=== PATIENT | female | born 1990 | race Caucasian/White ===

== ENCOUNTER 2018-09-06 18:29 | Emergency (ER) | payer OTHER ==
--- NOTE | 2018-09-06 18:49 | EDPHY ---
H & P Stated Complaint: today had acute vaginal bleeding with clots at 3pm 12 wks - Personal History LMP (Females 10-55): Current Tetanus Diphtheria and Acellular Pertussis (TDAP): Yes - Medical/Surgical History Hx Asthma: No Hx Chronic Respiratory Disease: No Hx Diabetes: No Hx Cardiac Disease: No Hx Renal Disease: No Hx Cirrhosis: No Hx Alcoholism: No Hx HIV/AIDS: No Hx Splenectomy or Spleen Trauma: No Other PMH: denies - Social History Smoking Status: Never smoked Time Seen by Provider: 09/06/18 18:40 HPI/ROS: CHIEF COMPLAINT: Vaginal bleeding, HISTORY OF PRESENT ILLNESS: 27-year-old female SAB 1, currently 12 weeks 1 day, complaining of vaginal spotting and passage of clots few hours ago while she was in a meeting. She is visiting from [place]. She has had ultrasonographic confirmation of her intrauterine . Denies: Abdominal pain, abdominal cramping, back or flank pain, urinary abnormality, trauma PRIMARY CARE PROVIDER: In [place] REVIEW OF SYSTEMS: 10 systems reviewed and negative with the exception of the elements mentioned in the history of present illness PAST MEDICAL & SURGICAL HISTORY: SAB 1, last spontaneous at 7 weeks SOCIAL HISTORY: Visiting from [place]. PHYSICAL EXAM (Prior to examination, patient consented to physical exam, hands were washed and my usual and customary physical exam procedures followed) 1) GENERAL: Well-developed, well-nourished, alert and oriented. Appears to be in no acute distress. 2) HEAD: Normocephalic, atraumatic 3) HEENT: Pupils equal, round, reactive to light bilaterally. Sclera anicteric. 4) NECK: Full range of motion, no meningeal signs. 5) LUNGS: Clear auscultation bilaterally, no wheezes, no rhonchi, no retractions. 6) HEART: Regular rate and rhythm, no murmur, no heave, no gallop. 7) ABDOMEN: No guarding, no rebound, no focal tenderness, negative McBurney's, negative Bonds's, negative Rovsing's, negative peritoneal sign, 8) MUSCULOSKELETAL: Moving all extremities, no focal areas of tenderness, no obvious trauma. No peripheral edema or discoloration. 9) BACK: No CVA tenderness, no midline vertebral tenderness, no fluctuance, no step-off, no obvious trauma, no visual or palpable abnormality. 10) SKIN: No rash, no petechiae. 11) Psychiatric: Patient is oriented X 3, there is no agitation. DIFFERENTIAL DIAGNOSIS: In no particular order including but not limited to spontaneous , threatened , complete , ectopic ([place]) Constitutional: Initial Vital Signs Temperature (C) 37.3 C 09/06/18 18:32 Heart Rate 98 09/06/18 18:32 Respiratory Rate 18 09/06/18 18:32 Blood Pressure 121/66 H 09/06/18 18:32 O2 Sat (%) 99 09/06/18 18:32 O2 Delivery Mode Room Air Allergies/Adverse Reactions: sulfamethoxazole [From Decra] Allergy (Verified 09/06/18 18:32) trimethoprim [From Decra] Allergy (Verified 09/06/18 18:32) Home Medications: Medication Instructions Recorded 09/06/18 Synthroid 09/06/18 Medical Decision Making - Diagnostics Imaging Results: Imaging Impressions Obstetrics Ultrasound 09/06/18 18:48 Impression: 1. Single live intrauterine gestation with estimated age by ultrasound of 12 weeks 4 days with an estimated delivery date of March 17, 2019. 2. Low-lying placenta; follow-up would be suggested at approximately 20 weeks gestation where growth and development can also be assessed. Results called and discussed with La RAMOS on 09/06/2018 at 20:26. Imaging Impressions Obstetrics Ultrasound 09/06/18 18:48 Impression: 1. Single live intrauterine gestation with estimated age by ultrasound of 12 weeks 4 days with an estimated delivery date of March 17, 2019. 2. Low-lying placenta; follow-up would be suggested at approximately 20 weeks gestation where growth and development can also be assessed. Results called and discussed with La RAMOS on 09/06/2018 at 20:26. Images reviewed myself ([place]) ED Course/Re-evaluation: I did not see this patient while she was in the emergency department. However her care was discussed with the PA while the patient was in the department. I agree with treatment plan and management (Bennett Lockett) 8:39 p.m. Re-evaluation. She appears comfortable. Discussed with patient her diagnostic studies. Recommended pelvic rest, no heavy lifting. She is returning to [place] tomorrow (Thursday). She already has an appoint with her OBGYN on direction she keep. Given copies of her diagnostic studies. She is returning to [place] tomorrow morning. Patient feels comfortable being discharged. All questions and concerns addressed by myself. Patient given my usual and customary discharge precautions and instructions regarding their clinical impression. Care of patient under supervision of secondary supervising physician Dr Lockett . ([facility] - Data Points Laboratory Results: Laboratory Results 09/06/18 18:50 09/06/18 18:50 09/06/18 09/06/18 09/06/18 18:50 18:50 18:50 WBC 10.89 10^3/uL H 10^3/uL (3.80-9.50) RBC 4.12 10^6/uL L 10^6/uL (4.18-5.33) Hgb 13.1 g/dL g/dL (12.6-16.3) Hct 38.1 % % (38.0-47.0) MCV 92.5 fL fL (81.5-99.8) MCH 31.8 pg pg (27.9-34.1) MCHC 34.4 g/dL g/dL (32.4-36.7) RDW 11.6 % % (11.5-15.2) Plt Count 250 10^3/uL 10^3/uL (150-400) MPV 9.1 fL fL (8.7-11.7) Neut % (Auto) 64.4 % % (39.3-74.2) Lymph % (Auto) 28.6 % % (15.0-45.0) [place] % (Auto) 5.3 % % (4.5-13.0) Eos % (Auto) 0.9 % % (0.6-7.6) Baso % (Auto) 0.3 % % (0.3-1.7) Nucleat RBC Rel Count 0.0 % % (0.0-0.2) Absolute Neuts (auto) 7.02 10^3/uL H 10^3/uL (1.70-6.50) Absolute Lymphs (auto) 3.11 10^3/uL H 10^3/uL (1.00-3.00) Absolute Monos (auto) 0.58 10^3/uL 10^3/uL (0.30-0.80) Absolute Eos (auto) 0.10 10^3/uL 10^3/uL (0.03-0.40) Absolute Basos (auto) 0.03 10^3/uL 10^3/uL (0.02-0.10) Absolute Nucleated RBC 0.00 10^3/uL 10^3/uL (0-0.01) Immature Gran % 0.5 % % (0.0-1.1) Immature Gran # 0.05 10^3/uL 10^3/uL (0.00-0.10) Sodium 134 mEq/L L mEq/L (135-145) Potassium 3.4 mEq/L L mEq/L (3.5-5.2) Chloride 99 mEq/L mEq/L (97-110) Carbon Dioxide 24 mEq/l mEq/l (22-31) Anion Gap 11 mEq/L mEq/L (6-14) BUN 11 mg/dL mg/dL (7-23) Creatinine 0.6 mg/dL mg/dL (0.6-1.0) Estimated GFR > 60 Glucose 94 mg/dL mg/dL (70-100) Calcium 9.4 mg/dL mg/dL (8.5-10.4) Beta HCG, Quant 480060.00 mIU/mL H mIU/mL (0.00-4.83) Urine Color Urine Appearance Urine pH Ur Specific Economy Urine Protein Urine Ketones Urine Blood Urine Nitrate Urine Bilirubin Urine Urobilinogen Ur Leukocyte Esterase Urine RBC Urine WBC Ur Epithelial Cells Urine Mucus Urine Glucose Patient ABO/Rh B POSITIVE 09/06/18 18:46 WBC RBC Hgb Hct MCV MCH MCHC RDW Plt Count MPV Neut % (Auto) Lymph % (Auto) [place] % (Auto) Eos % (Auto) Baso % (Auto) Nucleat RBC Rel Count Absolute Neuts (auto) Absolute Lymphs (auto) Absolute Monos (auto) Absolute Eos (auto) Absolute Basos (auto) Absolute Nucleated RBC Immature Gran % Immature Gran # Sodium Potassium Chloride Carbon Dioxide Anion Gap BUN Creatinine Estimated GFR Glucose Calcium Beta HCG, Quant Urine Color YELLOW Urine Appearance CLEAR Urine pH 6.0 (5.0-7.5) Ur Specific Economy 1.017 (1.002-1.030) Urine Protein NEGATIVE (NEGATIVE) Urine Ketones TRACE H (NEGATIVE) Urine Blood 3+ H (NEGATIVE) Urine Nitrate NEGATIVE (NEGATIVE) Urine Bilirubin NEGATIVE (NEGATIVE) Urine Urobilinogen NEGATIVE EU EU (0.2-1.0) Ur Leukocyte Esterase NEGATIVE (NEGATIVE) Urine RBC 3-5 /hpf H /hpf (0-3) Urine WBC 1-3 /hpf /hpf (0-3) Ur Epithelial Cells TRACE /lpf /lpf (NONE-1+) Urine Mucus TRACE /lpf /lpf (NONE-1+) Urine Glucose NEGATIVE (NEGATIVE) Patient ABO/Rh Departure - Departure Disposition: Home, Routine, Self-Care Clinical Impression: Candidiasis of vagina, Vaginal bleeding before 22 weeks gestation Condition: Good Instructions: Threatened Miscarriage (ED) Referrals: Preston Ramos MD [Medical Doctor] - As per Instructions
[2018-09-06 19:09] LABS: PLATELET COUNT 250 10^3/uL (150-400)
[2018-09-06 20:48] VITALS: BP 119/81
== END 2018-09-06 21:02 | disposition home or self-care (01) ==
DX: O26.851 Spotting complicating pregnancy, first trimester (principal); O23.599 Infection of other part of genital tract in pregnancy, unspecified trimester; B37.3 Candidiasis of vulva and vagina; Z3A.12 12 weeks gestation of pregnancy